=== PATIENT | male | born 1970 | race African-American/Black ===

== ENCOUNTER 2023-12-10 14:36 | Emergency (ER) | payer MEDICAID ==
[~2023-12-10] VITALS: Ht 180.3 cm; Wt 95.0 kg
[2023-12-10] MEDS: predniSONE 20 MG TAB PO ONE (16:37)
[2023-12-10] MEDS: IBUPROFEN 600MG TAB PO ONE (16:37)
[2023-12-10] MEDS: methocarbamoL 500 MG TAB PO ONE (16:37)
[2023-12-10 17:34] VITALS: BP 135/76; TEMP 96.5; O2SAT 98
[2023-12-10] MEDS ORDERED: PRED20TA PO (17:49)
[2023-12-10] MEDS ORDERED: IBUP-1022 PO (17:49)
[2023-12-10] MEDS ORDERED: METH-1164 PO (17:49)
== END 2023-12-10 18:02 | disposition home or self-care (01) ==
LOC: M ED 14:36
DX: M54.40 Lumbago with sciatica, unspecified side (principal)
CPT/HCPCS: 72110; 99283; J7512